=== PATIENT | male | born 1975 | race Caucasian/White ===

== ENCOUNTER → 2018-01-20 13:20 | Outpatient (CLI) | payer BC, SELFPAY ==
--- NOTE | 2018-01-20 13:24 | ECHOD_ITS ---
Reason For Study: EDEMA Procedure This was a 2D Doppler, Color Flow transthoracic echocardiogram. The study was technically difficult. Exam performed in department. Left Ventricle Normal LV size. Left ventricular systolic function is normal. The estimated ejection fraction is 60 %. No regional wall motion abnormalities noted. Right Ventricle Normal RV size. Normal systolic function. Atria Normal left atrium. Normal right atrium. Mitral Valve Normal mitral valve. Tricuspid Valve Normal tricuspid valve. Mild tricuspid valve insufficiency. Aortic Valve Normal aortic valve. Trisinus/trileaflet aortic valve. Pulmonic Valve Normal pulmonic valve. Great Vessels Normal aortic root. The pulmonary artery is normal size. Normal inferior vena cava. Pericardium/Pleural No pericardial effusion. MMode/2D Measurements & Calculations LVIDd: 5.3 cm IVSd: 1.1 cm Ao root diam: 3.4 cm LVIDs: 3.7 cm LVPWd: 1.1 cm LA dimension: 3.4 cm RVDd: 3.4 cm FS: 30.0 % LAV(MOD-bp): 55.0 ml LA A4 area: 20.9 cm2 RA A4 area: 14.9 cm2 LAV(MOD-bp) Indexed: 21.6 ml/m2 LAV(MOD-sp2): 46.0 ml LAV(MOD-sp4): 60.6 ml Doppler Measurements & Calculations MV E max michael: 69.0 cm/sec Lat Peak E' Michael: 11.1 cm/sec Med Peak E' Michael: 9.9 cm/sec MV A max michael: 85.4 cm/sec E/E' lat: 6.2 E/E' med: 7.0 MV E/A: 0.81 Ao V2 max: 129.5 cm/sec LV V1 max: 98.6 cm/sec PA V2 max: 92.1 cm/sec Ao max P.7 mmHg LV V1 max P.9 mmHg TR max michael: 281.1 cm/sec TR max P.6 mmHg Interpretation Summary Normal LV size. Left ventricular systolic function is normal. The estimated ejection fraction is 60 %. Mild tricuspid valve insufficiency. Ordering Physician: Bassam Ricks Referring Physician: Bassam Ricks Performed By: Violet Neumann RDCS, RVT
== END ==
PROVIDERS: Family Provider Family Medicine; PCP Family Medicine; Visit Provider Family Medicine
DX: R60.1 Generalized edema (principal); I25.2 Old myocardial infarction
CPT/HCPCS: 93306